=== PATIENT | female | born 1990 | race Caucasian/White ===

== ENCOUNTER 2023-09-20 08:07 | Outpatient (CLI) | payer OTHER, SELFPAY ==
[2023-09-24 10:47] LABS: Free T4 Free Thyroxine* 1.09 ng/dL (0.70-1.85); Vitamin D 25 Hydroxy* 48 ng/mL (30-80)
[2023-09-24 11:14] LABS: Vitamin B12* > 1000 pg/mL (243-894)
[2023-09-26 18:44] LABS: Homocysteine, Total 5 umol/L (0-15)
[2023-09-26 18:48] LABS: Follicle Stimulating Hormone 21.8 IU/L; Luteinizing Hormone, Serum 7.5 IU/L
[2023-09-26 18:49] LABS: DHEAS 78 ug/dL (99-340)
[2023-09-26 19:00] LABS: Estradiol Premenol Female 36 pg/mL
[2023-09-26 19:12] LABS: Free T3 2.5 pg/mL (2.5-4.3)
[2023-09-26 19:21] LABS: Thyroid Peroxidase (TPO) Ab 4.2 IU/mL (0.0-9.0)
[2023-09-26 20:57] LABS: Prolactin 7.4 ng/mL (2.8-29.2)
[2023-09-27 18:48] LABS: Anti-Mullerian Hormone 0.054 ng/mL (0.176-11.705)
[2023-09-27 19:23] LABS: MMA Vitamin B12 Status <0.10 umol/L (0.00-0.40)
[2023-09-28 07:57] LABS: Testosterone, Low Level 14 ng/dL (9-55)
== END 2023-09-20 08:08 | disposition home or self-care (01) ==
PROVIDERS: Visit Provider Obstetrics & Gynecology
DX: Z13.1 Encounter for screening for diabetes mellitus (principal); Z31.41 Encounter for fertility testing
CPT/HCPCS: 82306; 82607; 82627; 82670; 82947; 83001; 83002; 83090; 83520; 83525; 84146; 84403; 84439; 84443; 84481; 86376

== ENCOUNTER 2023-11-06 16:02 | Outpatient (CLI) | payer OTHER, SELFPAY | END 2023-11-06 16:03 | disposition home or self-care (01) | LOC: NFLDREF 11-10 07:12 | PROVIDERS: Visit Provider Obstetrics & Gynecology | DX: R68.82 Decreased libido (principal) | CPT/HCPCS: 82627 ==

== ENCOUNTER 2024-12-05 08:29 | Outpatient (CLI) | payer OTHER, SELFPAY ==
[2024-12-05 15:05] LABS: Bacterial Vaginosis* Negative (Negative); Candida glab/krus NOT DETECTED (No Detected); Candida species DETECTED (No Detected); Trichomonas vaginalis NOT DETECTED (No Detected)
[2024-12-07 05:11] LABS: HPV Source Cervix; HPV, High Risk by TMA Detected
[2024-12-07 19:06] LABS: HPV Genotype 16 by TMA Not Detected; HPV Genotype 18/45 by TMA Not Detected; HPVG Source Cervix
[2024-12-20 17:18] LABS: Pap Test Reviewed by Path Done
== END 2024-12-05 08:30 | disposition home or self-care (01) ==
PROVIDERS: Visit Provider Registered Nurse
DX: R10.2 Pelvic and perineal pain (principal); R35.0 Frequency of micturition; N94.89 Other specified conditions associated with female genital organs and menstrual cycle; Z11.51 Encounter for screening for human papillomavirus (HPV); Z12.4 Encounter for screening for malignant neoplasm of cervix
CPT/HCPCS: 81513; 87086; 87481; 87624; 87625; 87661; 88141; 88142

== ENCOUNTER 2025-01-06 17:16 | Outpatient (CLI) | payer OTHER, SELFPAY | END 2025-01-06 17:17 | disposition home or self-care (01) | LOC: NFLDREF 01-10 01:26 | PROVIDERS: Visit Provider Physician Assistant | DX: R30.0 Dysuria (principal); N89.8 Other specified noninflammatory disorders of vagina; B37.31 Acute candidiasis of vulva and vagina | CPT/HCPCS: 87086 ==